=== PATIENT | female | born 1930 | race Caucasian/White ===

== ENCOUNTER 2017-02-25 08:33 | Emergency (ER) | payer MEDICARE, BC ==
[2017-02-25] MEDS ORDERED: ACETAMINOPHEN TAB 325 MG TAB PO STA (08:53)
--- NOTE | 2017-02-25 08:57 | ED ---
General Adult HPI - General Chief complaint: Extremity Injury, Lower Stated complaint: LEFT LEG PAIN, UNABLE TO BEAR WEIGHT Time Seen by Provider: 02/25/17 08:49 Source: patient, RN notes reviewed Mode of arrival: wheelchair Limitations: no limitations - History of Present Illness Initial comments: Patient is a 86 year old female who presents to the ER today with CC of left knee pain that began at approximately 4:30 am. Patient denies any injury or trauma. States it is worse with certain movement or when she tries to bare weight. Patient states that she did not take anything for the pain. She denies any other complaints. Patient denies any recent fever, chills, shortness of breath, chest pain, back pain, abdominal pain, nausea or vomiting, numbness or tingling, dysuria or hematuria, constipation or diarrhea, headaches or visual changes, or any other complaints. - Related Data Home Medications Medication Instructions Recorded Confirmed Aspirin 81 mg PO DAILY 08/02/15 02/25/17 amLODIPine BESYLATE/BENAZEPRIL 1 cap PO DAILY 08/02/15 02/25/17 [amLODIPine BESYLATE/BENAZEPRIL 5-20 mg] Allergies Allergy/AdvReac Type Severity Reaction Status Date / Time No Known Allergies Allergy Verified 02/25/17 08:42 Review of Systems ROS Statement: Those systems with pertinent positive or pertinent negative responses have been documented in the HPI. ROS Other: All systems not noted in ROS Statement are negative. Past Medical History Past Medical History: Hypertension History of Any Multi-Drug Resistant Organisms: None Reported Past Surgical History: Orthopedic Surgery Additional Past Surgical History / Comment(s): shoulder fracture with repair. Past Psychological History: No Psychological Hx Reported Smoking Status: Never smoker Past Alcohol Use History: None Reported Past Drug Use History: None Reported General Exam - General Exam Comments Initial Comments: General: The patient is awake and alert, in no distress, and does not appear acutely ill. Neck: The neck is supple, there is no tenderness or JVD. Cardiovascular: There is a regular rate and rhythm. No murmur, rub or gallop is appreciated. Respiratory: Lungs are clear to auscultation, respirations are non-labored, breath sounds are equal. No wheezes, stridor, rales, or rhonchi. Musculoskeletal: Normal appearance of left knee with no redness swelling. She shows good range of motion both flexion and extension. Tenderness on exam to the lateral exterior aspect of the left knee. No tenderness to left hip or down to the left ankle. Sensations are intact pulses equal bilaterally 2+. Strength 5/5. Neurological: A&O x 3. CN II-XII intact, There are no obvious motor or sensory deficits. Coordination appears grossly intact. Speech is normal. Skin: Skin is warm and dry and no rashes or lesions are noted. Psychiatric: Normal mood and affect. Limitations: no limitations Course Vital Signs 02/25/17 08:38 Temperature 97.8 F Pulse Rate 69 Respiratory 20 Rate Blood Pressure 136/70 O2 Sat by Pulse 96 Oximetry Medical Decision Making - Medical Decision Making Also negative for any evidence of DVT. X-rays only showing osteoarthritis. No injury or trauma. No redness or swelling. Patient doesn't to some improvement after Tylenol in the emergency room. About ice elevate and use Tylenol and follow family doctor over the next 2 days. Advised return here to the emergency room for any symptoms increase or worsen. Disposition Clinical Impression: Knee pain Disposition: HOME SELF-CARE Condition: Good Instructions: Knee Pain (ED) Additional Instructions: Please use medication as discussed. Please follow-up with family doctor in the next 2 days of symptoms have not improved. Please return to emergency room if the symptoms increase or worsen or for any other concerns. Referrals: Tomer Hugo DO [Primary Care Provider] - 1-2 days Time of Disposition: 09:59
--- NOTE | 2017-02-25 09:38 | XR ---
EXAMINATION TYPE: XR knee complete LT , 3 VIEWS DATE OF EXAM ORDERED: 02/25/2017 HISTORY: Pain. COMPARISON: None. FINDINGS: There is medial joint space loss. There is peaking of the intercondylar spines. No fractur e, dislocation or knee joint effusion is seen. There are some remodeling changes in the patellofemora l joint. IMPRESSION: OSTEOARTHRITIS.
--- NOTE | 2017-02-25 09:43 | US ---
EXAMINATION TYPE: US venous doppler duplex LE LT DATE OF EXAM: 02/25/2017 8:54 AM COMPARISON: NONE CLINICAL HISTORY: Pain. Left anterior knee pain SIDE PERFORMED: Left TECHNIQUE: The lower extremity deep venous system is examined utilizing real time linear array sonog erika with graded compression, doppler sonography and color-flow sonography. VESSELS IMAGED: External Iliac Vein (EIV) Common Femoral Vein Deep Femoral Vein Greater Saphenous Vein * Femoral Vein Popliteal Vein Proximal Calf Veins (* superficial vessels) Left Leg: Negative for DVT No popliteal fossa lesion is seen. IMPRESSION: THIS EXAMINATION IS NEGATIVE FOR DVT WITHIN THE LEFT LEG.
[2017-02-25 10:13] VITALS: BP 157/69; PULSE 63; RESP 18; TEMP 97.1
== END 2017-02-25 10:13 | disposition home or self-care (01) ==
LOC: EC 08:33
DX: M25.562 Pain in left knee (principal); M17.12 Unilateral primary osteoarthritis, left knee; I10 Essential (primary) hypertension; Z98.890 Other specified postprocedural states; Z79.82 Long term (current) use of aspirin; Z79.899 Other long term (current) drug therapy
CPT/HCPCS: 99284

== ENCOUNTER 2017-06-23 07:32 | Inpatient (IN) | payer MEDICARE, BC ==
[2017-06-23] MEDS ORDERED: SODIUM CHLORIDE 0.9% 1,000 ML IV ONE (07:53)
--- NOTE | 2017-06-23 07:59 | ED ---
General Adult HPI - General Chief complaint: Altered Mental Status Stated complaint: Confusion Time Seen by Provider: 06/23/17 07:48 Source: patient, family, EMS, RN notes reviewed Mode of arrival: EMS Limitations: altered mental status - History of Present Illness Initial comments: Patient is a pleasant 86-year-old female presenting to the emergency department with concerns for change in mental status. History is provided by family. Patient is a poor historian. Patient states she feels fine and has no complaints. Patient denies feeling confused. Family states patient was acting well last night. Patient has been altered this morning. Patient is confused and patient has been somewhat repetitive. Denies any pain. No reported injury. - Related Data Home Medications Medication Instructions Recorded Confirmed amLODIPine BESYLATE/BENAZEPRIL 1 cap PO DAILY 08/02/15 06/23/17 [amLODIPine BESYLATE/BENAZEPRIL 5-20 mg] Cholecalciferol [Vitamin D3] 1,000 unit PO DAILY 06/23/17 06/23/17 Allergies Allergy/AdvReac Type Severity Reaction Status Date / Time No Known Allergies Allergy Verified 06/23/17 08:28 Review of Systems ROS Statement: Those systems with pertinent positive or pertinent negative responses have been documented in the HPI. ROS Other: All systems not noted in ROS Statement are negative. Constitutional: Denies: fever Eyes: Denies: eye pain ENT: Denies: ear pain Respiratory: Denies: cough Cardiovascular: Denies: chest pain Endocrine: Denies: fatigue Gastrointestinal: Denies: abdominal pain Genitourinary: Denies: dysuria Musculoskeletal: Denies: back pain Skin: Denies: rash Neurological: Reports: confusion. Denies: headache, weakness Past Medical History Past Medical History: Hypertension, Osteoarthritis (OA) History of Any Multi-Drug Resistant Organisms: None Reported Past Surgical History: Orthopedic Surgery Additional Past Surgical History / Comment(s): shoulder fracture with repair. Past Psychological History: No Psychological Hx Reported Smoking Status: Never smoker Past Alcohol Use History: None Reported Past Drug Use History: None Reported General Exam Limitations: altered mental status General appearance: alert, in no apparent distress Head exam: Present: atraumatic Eye exam: Present: normal appearance, PERRL, EOMI ENT exam: Present: normal oropharynx Neck exam: Present: normal inspection. Absent: tenderness, meningismus Respiratory exam: Present: normal lung sounds bilaterally Cardiovascular Exam: Present: regular rate, normal rhythm GI/Abdominal exam: Present: soft. Absent: tenderness Extremities exam: Present: normal inspection Neurological exam: Present: alert, altered, CN II-XII intact. Absent: motor sensory deficit Expanded Neurological exam: Present: protecting the airway Patient oriented to: Absent: person, place, time Speech: Present: fluid speech Cranial nerves: EOM's Intact: Normal Motor strength exam: RUE: 5, LUE: 5, RLE: 5, LLE: 5 Eye Response: (4) open spontaneously Motor Response: (6) obeys commands Verbal Response: (4) confused conversation Psychiatric exam: Present: normal affect, normal mood Skin exam: Present: normal color Course Vital Signs 06/23/17 06/23/17 07:33 09:09 Temperature 97.3 F L Pulse Rate 85 81 Respiratory 18 16 Rate Blood Pressure 156/70 145/64 O2 Sat by Pulse 96 97 Oximetry EKG Findings - EKG Comments: EKG Findings:: Sinus rhythm at 95. First degree AV block with a AR of 214. QRS 86. QT 36. QTc 447. Left axis. Septal Q waves. No acute ST change. Medical Decision Making - Medical Decision Making Patient reevaluated and improved. Family states patient is back to normal. Patient and family updated on results and plan. Concern exists for possible TIA. Case was discussed in detail with Dr. Hugo, who will admit his patient. - Lab Data Result diagrams: 06/23/17 07:53 06/23/17 07:53 Lab Results 06/23/17 06/23/17 06/23/17 Range/Units 07:53 07:53 07:53 WBC 10.0 (3.8-10.6) k/uL RBC 5.48 H (3.80-5.40) m/uL Hgb 16.2 H (11.4-16.0) gm/dL Hct 52.3 H (34.0-46.0) % MCV 95.5 (80.0-100.0) fL MCH 29.6 (25.0-35.0) pg MCHC 31.0 (31.0-37.0) g/dL RDW 13.5 (11.5-15.5) % Plt Count 284 (150-450) k/uL Neutrophils % 81 % Lymphocytes % 13 % Monocytes % 4 % Eosinophils % 1 % Basophils % 0 % Neutrophils # 8.1 H (1.3-7.7) k/uL Lymphocytes # 1.3 (1.0-4.8) k/uL Monocytes # 0.4 (0-1.0) k/uL Eosinophils # 0.1 (0-0.7) k/uL Basophils # 0.0 (0-0.2) k/uL PT (9.0-12.0) sec INR (<1.2) APTT (22.0-30.0) sec Sodium 144 (137-145) mmol/L Potassium 4.8 (3.5-5.1) mmol/L Chloride 109 H (98-107) mmol/L Carbon Dioxide 20 L (22-30) mmol/L Anion Gap 15 mmol/L BUN 32 H (7-17) mg/dL Creatinine 1.53 H (0.52-1.04) mg/dL Est GFR (MDRD) Af Amer 39 (>60 ml/min/1.73 sqM) Est GFR (MDRD) Non-Af 32 (>60 ml/min/1.73 sqM) Glucose 145 H (74-99) mg/dL Calcium 10.5 H (8.4-10.2) mg/dL Total Bilirubin 0.6 (0.2-1.3) mg/dL AST 22 (14-36) U/L ALT 14 (9-52) U/L Alkaline Phosphatase 134 H (38-126) U/L Total Creatine Kinase 74 (30-135) U/L CK-MB (CK-2) 1.0 (0.0-2.4) ng/mL CK-MB (CK-2) Rel Index 1.4 Troponin I 0.021 (0.000-0.034) ng/mL Total Protein 7.1 (6.3-8.2) g/dL Albumin 4.2 (3.5-5.0) g/dL Urine Color Urine Appearance (Clear) Urine pH (5.0-8.0) Ur Specific [place] (1.001-1.035) Urine Protein (Negative) Urine Glucose (UA) (Negative) Urine Ketones (Negative) Urine Blood (Negative) Urine Nitrite (Negative) Urine Bilirubin (Negative) Urine Urobilinogen (<2.0) mg/dL Ur Leukocyte Esterase (Negative) Urine WBC (0-5) /hpf Ur Squamous Epith Cells (0-4) /hpf Urine Mucus (None) /hpf Urine Opiates Screen (NotDetected) Ur Oxycodone Screen (NotDetected) Urine Methadone Screen (NotDetected) Ur Propoxyphene Screen (NotDetected) Ur Barbiturates Screen (NotDetected) U Tricyclic Antidepress (NotDetected) Ur Phencyclidine Scrn (NotDetected) Ur Amphetamines Screen (NotDetected) U Methamphetamines Scrn (NotDetected) U Benzodiazepines Scrn (NotDetected) Urine Cocaine Screen (NotDetected) U Marijuana (THC) Screen (NotDetected) 06/23/17 06/23/17 Range/Units 07:53 09:02 WBC (3.8-10.6) k/uL RBC (3.80-5.40) m/uL Hgb (11.4-16.0) gm/dL Hct (34.0-46.0) % MCV (80.0-100.0) fL MCH (25.0-35.0) pg MCHC (31.0-37.0) g/dL RDW (11.5-15.5) % Plt Count (150-450) k/uL Neutrophils % % Lymphocytes % % Monocytes % % Eosinophils % % Basophils % % Neutrophils # (1.3-7.7) k/uL Lymphocytes # (1.0-4.8) k/uL Monocytes # (0-1.0) k/uL Eosinophils # (0-0.7) k/uL Basophils # (0-0.2) k/uL PT 9.5 (9.0-12.0) sec INR 1.0 (<1.2) APTT 21.2 L (22.0-30.0) sec Sodium (137-145) mmol/L Potassium (3.5-5.1) mmol/L Chloride (98-107) mmol/L Carbon Dioxide (22-30) mmol/L Anion Gap mmol/L BUN (7-17) mg/dL Creatinine (0.52-1.04) mg/dL Est GFR (MDRD) Af Amer (>60 ml/min/1.73 sqM) Est GFR (MDRD) Non-Af (>60 ml/min/1.73 sqM) Glucose (74-99) mg/dL Calcium (8.4-10.2) mg/dL Total Bilirubin (0.2-1.3) mg/dL AST (14-36) U/L ALT (9-52) U/L Alkaline Phosphatase (38-126) U/L Total Creatine Kinase (30-135) U/L CK-MB (CK-2) (0.0-2.4) ng/mL CK-MB (CK-2) Rel Index Troponin I (0.000-0.034) ng/mL Total Protein (6.3-8.2) g/dL Albumin (3.5-5.0) g/dL Urine Color Yellow Urine Appearance Clear (Clear) Urine pH 5.5 (5.0-8.0) Ur Specific [place] 1.016 (1.001-1.035) Urine Protein 1+ H (Negative) Urine Glucose (UA) Negative (Negative) Urine Ketones Negative (Negative) Urine Blood Small H (Negative) Urine Nitrite Negative (Negative) Urine Bilirubin Negative (Negative) Urine Urobilinogen <2.0 (<2.0) mg/dL Ur Leukocyte Esterase Negative (Negative) Urine WBC <1 (0-5) /hpf Ur Squamous Epith Cells <1 (0-4) /hpf Urine Mucus Rare H (None) /hpf Urine Opiates Screen Not Detected (NotDetected) Ur Oxycodone Screen Not Detected (NotDetected) Urine Methadone Screen Not Detected (NotDetected) Ur Propoxyphene Screen Not Detected (NotDetected) Ur Barbiturates Screen Not Detected (NotDetected) U Tricyclic Antidepress Not Detected (NotDetected) Ur Phencyclidine Scrn Not Detected (NotDetected) Ur Amphetamines Screen Not Detected (NotDetected) U Methamphetamines Scrn Not Detected (NotDetected) U Benzodiazepines Scrn Not Detected (NotDetected) Urine Cocaine Screen Not Detected (NotDetected) U Marijuana (THC) Screen Not Detected (NotDetected) - Radiology Data Radiology results: report reviewed (Computed tomography scan of the brain shows no acute process), image reviewed (Chest x-ray shows no acute process) Disposition Clinical Impression: Altered mental status Disposition: ADMITTED IP TO THIS HOSP Referrals: Tomer Hugo DO [Primary Care Provider] - 1-2 days Decision Time: 10:04
[2017-06-23 08:11] LABS: Basophils % (A) 0 %; Eosinophils # (A) 0.1 k/uL (0-0.7); Eosinophils % (A) 1 %; HCT 52.3 % (34.0-46.0); HGB 16.2 gm/dL (11.4-16.0); Lymphocytes # (A) 1.3 k/uL (1.0-4.8); Lymphocytes % (A) 13 %; MCH 29.6 pg (25.0-35.0); MCV 95.5 fL (80.0-100.0); Mean Platelet Volume 6.9; Monocytes # (A) 0.4 k/uL (0-1.0); Monocytes % (A) 4 %; Neutrophils # (A) 8.1 k/uL (1.3-7.7); Neutrophils % (A) 81 %; Platelet Count 284 k/uL (150-450); RBC 5.48 m/uL (3.80-5.40); RDW 13.5 % (11.5-15.5)
[2017-06-23 08:20] LABS: Albumin 4.2 g/dL (3.5-5.0); Calcium 10.5 mg/dL (8.4-10.2); Potassium 4.8 mmol/L (3.5-5.1); Prothrombin Time 9.5 sec (9.0-12.0); Total Bilirubin 0.6 mg/dL (0.2-1.3); Total Protein 7.1 g/dL (6.3-8.2)
[2017-06-23 08:35] LABS: Partial Thromboplastin Time 21.2 sec (22.0-30.0)
--- NOTE | 2017-06-23 08:36 | CT ---
EXAMINATION TYPE: CT brain wo con DATE OF EXAM: 06/23/2017 COMPARISON: 05/28/2011 HISTORY: Altered mental status, confusion CT DLP: 909.[address] of the brain was performed. The ventricles, basal cisterns and sulci overlying the cerebral convexities demonstrate mild enlargem ent. There is no evidence for intracranial hemorrhage or sulcal effacement. There is decreased attenuation about the periventricular white matter and deep white matter of both c erebral hemispheres, compatible with chronic small vessel ischemia. Differential diagnosis does inclu de demyelination. No mass effects are seen.No midline shift. Osseous calvarium is intact. If symptoms persist consider MRI. IMPRESSION: 1. Age related atrophic and chronic small vessel ischemic change without acute intracranial process s een at this time.
--- NOTE | 2017-06-23 08:48 | XR ---
EXAMINATION TYPE: XR chest 2V DATE OF EXAM: 06/23/2017 COMPARISON: 08/02/2015 INDICATION: Altered mental status TECHNIQUE: Frontal and lateral views of the chest are obtained. FINDINGS: The heart size is normal. The pulmonary vasculature is normal. The lungs are clear. IMPRESSION: 1. No acute pulmonary process.
[2017-06-23 08:54] LABS: Troponin I 0.021 ng/mL (0.000-0.034)
[2017-06-23 09:38] LABS: Appearance,Urine Clear (Clear); Bilirubin,Urine Negative (Negative); Blood,Urine Small (Negative); Color,Urine Yellow; Glucose,Urine (UA) Negative (Negative); Ketones,Urine Negative (Negative); Leukocyte Esterase,Urine Negative (Negative); Mucus,Urine Rare /hpf; Nitrite,Urine Negative (Negative); PH, Urine 5.5 (5.0-8.0); Protein,Urine 1+ (Negative); Specific Gravity,Urine 1.016 (1.001-1.035); Squamous Epithelial Cell,Urine <1 /hpf (0-4); Urobilinogen,Urine <2.0 mg/dL (<2.0); WBC,Urine <1 /hpf (0-5)
[2017-06-23 09:41] LABS: Amphetamine Screen,Urine Not Detected (NotDetected); Barbiturate Screen,Urine Not Detected (NotDetected); Benzodiazepines Screen,Urine Not Detected (NotDetected); Cocaine Screen,Urine Not Detected (NotDetected); Methadone Screen, Urine Not Detected (NotDetected); Opiate Screen,Urine Not Detected (NotDetected); Oxycodone Screen, Urine Not Detected (NotDetected); Phencyclidine Screen,Urine Not Detected (NotDetected); Tricyclic Antidepressant,Urine Not Detected (NotDetected); Urn Cannabinoid Scrn Not Detected (NotDetected)
[2017-06-23] MEDS ORDERED: NALOXONE 0.4 MG/ML 1 ML VIAL IV PRN (10:04)
--- NOTE | 2017-06-23 12:04 | US ---
EXAMINATION TYPE: US carotid duplex BILAT DATE OF EXAM: 06/23/2017 COMPARISON: NONE CLINICAL HISTORY: ams. EXAM MEASUREMENTS: RIGHT: Peak Systolic Velocity (PSV) cm/sec ----- Right CCA: 53.6 ----- Right ICA: 53.0 ----- Right ECA: 74.8 ICA/CCA ratio: 1.0 RIGHT: End Diastole cm/sec ----- Right CCA: 11.5 ----- Right ICA: 15.7 ----- Right ECA: 0.6 LEFT: Peak Systolic Velocity (PSV) cm/sec ----- Left CCA: 59.8 ----- Left ICA: 51.3 ----- Left ECA: 77.3 ICA/CCA ratio: 0.9 LEFT: End Diastole cm/sec ----- Left CCA: 11.9 ----- Left ICA: 7.9 ----- Left ECA: 0.0 VERTEBRALS (direction of flow): Right Vertebral: Antegrade Left Vertebral: Antegrade Rhythm: Normal Mild atherosclerotic changes, no significant velocity elevations. IMPRESSION: 1. No significant flow-limiting stenosis. Criteria for Assigning % of Stenosis / Diameter reduction (Estimation based on the indirect measurements of the internal carotid artery velocities (ICA PSV). 1. Normal (no stenosis)=ICA PSV < 125 cm/s: ratio < 2.0: ICA EDV<40 cm/s. 2. Less than 50% stenosis=ICA PSV < 125 cm/s: ratio < 2.0: ICA EDV<40 cm/s. 3. 50 to 69% stenosis=ICA PSV of 125 to 230 cm/s: ration 2.0 ? 4.0: ICA EDV 40-100 cm/s. 4. Greater than 70% stenosis to near occlusion= ICA PSV > 230 cm/s: ratio > 4.0: ICA EDV > 100 cm/s. 5. Near occlusion= ICA PSV velocities may be low or undetectable: variable ratio and ICA EDV. 6. Total occlusion=unable to detect flow.
--- NOTE | 2017-06-23 12:39 | ECHOF ---
Referral Reason:ams MEASUREMENTS -------- HEIGHT: 157.5 cm WEIGHT: 68.0 kg BP: RVIDd: 3.3 cm (< 3.3) IVSd: 1.4 cm (0.6 - 1.1) LVIDd: 3.2 cm (3.9 - 5.3) LVPWd: 1.1 cm (0.6 - 1.1) IVSs: 1.4 cm LVIDs: 2.4 cm LVPWs: 1.1 cm Ao Diam: 2.5 cm (2.0 - 3.7) AV Cusp: 1.6 cm (1.5 - 2.6) LA Diam: 4.5 cm (2.7 - 3.8) MV EXCURSION: 11.714 mm (> 18.000) MV EF SLOPE: 60 mm/s (70 - 150) EPSS: 0.4 cm MV E Reilly: 0.40 m/s MV DecT: 355 ms MV A Reilly: 0.87 m/s MV E/A Ratio: 0.46 RAP: 5.00 mmHg RVSP: 32.85 mmHg FINDINGS -------- Sinus rhythm. This was a technically adequate study. The left ventricular size is normal. There is mild concentric left ventricular hypertrophy. Overa ll left ventricular systolic function is normal with, an EF between 55 - 60 %. The right ventricle is normal in size. The left atrium is moderately dilated. The right atrial size is normal. There is mild aortic valve sclerosis. There is no evidence of aortic regurgitation. Mild mitral annular calcification present. Mild mitral regurgitation is present. Mild tricuspid regurgitation present. There is no evidence of pulmonary hypertension. The right v entricular systolic pressure, as measured by Doppler, is 32.85mmHg. The pulmonic valve was not well visualized. There is no pulmonic regurgitation present. The aortic root size is normal. There is no pericardial effusion. CONCLUSIONS -------- 1. Sinus rhythm. 2. The left ventricular size is normal. 3. There is mild concentric left ventricular hypertrophy. 4. Overall left ventricular systolic function is normal with, an EF between 55 - 60 %. 5. The left atrium is moderately dilated. 6. There is mild aortic valve sclerosis. 7. Mild mitral regurgitation is present. 8. Mild tricuspid regurgitation present. 9. There is no evidence of pulmonary hypertension. 10. There is no pulmonic regurgitation present. 11. There is no pericardial effusion. [employer] HAND: Saskia Huff RDCS
[2017-06-23] MEDS: LISINOPRIL 20 MG TAB PO SCH (14:14)
[2017-06-23] MEDS: amLODIPine 5 MG TAB PO SCH (14:14)
[2017-06-23] MEDS: CHOLECALCIFEROL 1,000 UNIT TAB PO SCH (14:14)
[2017-06-23] MEDS: ASPIRIN 81 MG PO SCH (14:14)
[2017-06-23] MEDS: SODIUM CHLORIDE 0.9% 1,000 ML IV SCH (17:11)
--- NOTE | 2017-06-23 18:43 | P.CNNES ---
History of Present Illness Consult date: 06/23/17 History of Present Illness: Patient is an 86-year-old female who was brought to the hospital with altered mental status. He is obtained from the patient and the patient's family including her daughter and son-in-law. Apparently the patient woke up at 3 AM and had some jerking movements in the and her heard this. He tried to talk to her but she could not hear them. She also had some irregular respirations. She he called his daughter who did come to the home at 6:30 and was unable to arouse her mother. The patient was sleeping heavily and only snored when they tried to pincher and wake her up. EMS was called and she was brought to the emergency room. The patient had no recollection of the ride to the emergency room. A few hours after arrival to the hospital she was back to her baseline. Apparently after waking up in the morning she was very confused disoriented could not recognize her or her children or family. So there was incontinence of There is no past history of seizure. There is no history of head injury or intracranial infection in the past. Her family at a carotid ultrasound in the emergency room which showed no flow-limiting stenosis. He had an echocardiogram which showed the left atrium to be moderately dilated and left ventricle normal size reports her speech was not understandable in the morning. 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 History of Any Multi-Drug Resistant Organisms: None Reported Past Surgical History: Orthopedic Surgery, Tonsillectomy Additional Past Surgical History / Comment(s): L shoulder fracture with repair, bilateral cataract removals with lens implants. Past Anesthesia/Blood Transfusion Reactions: No Reported Reaction Smoking Status: Never smoker - Past Family History Father Additional Family Medical History / Comment(s): Father committed suicde. Mother Family Medical History: Diabetes Mellitus Medications and Allergies Home Medications Medication Instructions Recorded Confirmed Type amLODIPine BESYLATE/BENAZEPRIL 1 cap PO DAILY 08/02/15 06/23/17 History [amLODIPine BESYLATE/BENAZEPRIL 5-20 mg] Cholecalciferol [Vitamin D3] 1,000 unit PO DAILY 06/23/17 06/23/17 History Allergies Allergy/AdvReac Type Severity Reaction Status Date / Time No Known Allergies Allergy Verified 06/23/17 08:28 Physical Examination - Vital Signs Vital Signs: Vital Signs Temp Pulse Resp BP Pulse Ox 06/23/17 16:43 99.2 F 68 16 113/54 91 L 06/23/17 14:15 78 16 151/63 94 L 06/23/17 10:58 71 16 160/71 95 06/23/17 09:09 81 16 145/64 97 06/23/17 07:33 97.3 F L 85 18 156/70 96 Intake and Output 06/23/17 06/23/17 06/23/17 06:59 14:59 22:59 Intake Total 0 Output Total 0 Balance 0 Intake: Intake, IV Titration 0 Amount Sodium Chloride 0.9% 1, 0 000 ml @ 20 mls/hr IV . Q24H [facility] Rx#:[id number] Output: Urine 0 Other: Weight 68.039 kg Patient Weight 06/24/17 06:59 Weight 68.039 kg - Constitutional General appearance: average body habitus - EENT EENT: PERRL, hearing intact, vision intact - Neurologic Ental status she was awake she was oriented to person she could not give the year she had difficulty naming the city she knew she was in the hospital and there is no a aphasia or dysarthria Results - Laboratory Findings CBC and BMP: 06/23/17 07:53 06/23/17 07:53 Abnormal Lab Findings: Abnormal Labs 06/23/17 06/23/17 06/23/17 07:53 07:53 07:53 RBC 5.48 H Hgb 16.2 H Hct 52.3 H Neutrophils # 8.1 H APTT 21.2 L Chloride 109 H Carbon Dioxide 20 L BUN 32 H Creatinine 1.53 H Glucose 145 H Calcium 10.5 H Alkaline Phosphatase 134 H Urine Protein Urine Blood Urine Mucus 06/23/17 09:02 RBC Hgb Hct Neutrophils # APTT Chloride Carbon Dioxide BUN Creatinine Glucose Calcium Alkaline Phosphatase Urine Protein 1+ H Urine Blood Small H Urine Mucus Rare H Assessment and Plan (1) Altered mental status Current Visit: Yes Status: Acute Code(s): R41.82 - ALTERED MENTAL STATUS, UNSPECIFIED Plan: The patient is a 86-year-old woman who had an episode at 3 AM of shaking in the bed while sleeping and loss of bladder control. Afterwards she slept heavily and woke up very disoriented and confused and could not be easily awakened in the morning by her family. EMS was called and patient was brought to the hospital. Her confusion seemed to resolve after several hours. Patient's episode at 3 AM could've been a generalized seizure and she quit may have been in a postictal state afterward. Recommend further evaluation with EEG and MRI scan of the brain. Advised patient that she should not be driving until spell free for 6 months
[2017-06-23 18:53] VITALS: RESP 18
[2017-06-24] MEDS: PANTOPRAZOLE 40 MG TABLET PO SCH (06:33)
[2017-06-24 07:01] LABS: Basophils % (A) 0 %; Eosinophils # (A) 0.1 k/uL (0-0.7); Eosinophils % (A) 1 %; HCT 43.3 % (34.0-46.0); HGB 13.4 gm/dL (11.4-16.0); Lymphocytes % (A) 20 %; MCH 29.9 pg (25.0-35.0); MCV 96.6 fL (80.0-100.0); Monocytes # (A) 0.8 k/uL (0-1.0); Monocytes % (A) 8 %; Neutrophils # (A) 6.7 k/uL (1.3-7.7); Neutrophils % (A) 69 %; Platelet Count 231 k/uL (150-450); RBC 4.49 m/uL (3.80-5.40); RDW 13.5 % (11.5-15.5); WBC 9.7 k/uL (3.8-10.6)
[2017-06-24 07:15] LABS: Albumin 3.3 g/dL (3.5-5.0); Calcium 9.6 mg/dL (8.4-10.2); Potassium 4.2 mmol/L (3.5-5.1); Total Bilirubin 0.6 mg/dL (0.2-1.3); Total Protein 5.7 g/dL (6.3-8.2)
[2017-06-24] MEDS: ASPIRIN 81 MG PO SCH (09:45)
[2017-06-24] MEDS: CHOLECALCIFEROL 1,000 UNIT TAB PO SCH (09:45)
[2017-06-24] MEDS: LISINOPRIL 20 MG TAB PO SCH (09:45)
[2017-06-24] MEDS: amLODIPine 5 MG TAB PO SCH (09:45)
--- NOTE | 2017-06-24 10:44 | EEG ---
ELECTROENCEPHALOGRAM REPORT DATE OF EE06/24/2017. ELECTROENCEPHALOGRAPHIC EXAMINATION REPORT: INDICATION FOR EXAMINATION: This patient is an 86-year-old female being evaluated for altered mental status and possible seizure. AGE: 86. EEG FINDINGS: A routine 21 channel awake digital EEG recording was accomplished utilizing the 10-20 international system with bipolar and referential montages. The background activity in the most alert resting state consists of a low to medium amplitude, fairly well- developed and well-sustained 8 Hz activity over the posterior head regions. This posterior rhythm attenuates to eye opening. There is a small amount of low amplitude 18-20 Hz beta activity seen maximally over the anterior head regions. Muscle and movement artifact was observed on a few occasions during the tracing. Hyperventilation was not performed. Photic stimulation at flash frequencies of 2-30 Hz produced a good symmetrical occipital driving response. No epileptiform discharges were seen. IMPRESSION: This EEG is within normal limits for the patient's age. The EEG failed to reveal any focal, lateralized, or epileptiform abnormalities. Clinical correlation is recommended. MMQUINTONL / IJN: [id number] /
[2017-06-24] MEDS: SODIUM CHLORIDE 0.9% 1,000 ML IV SCH (11:30)
--- NOTE | 2017-06-24 13:22 | MR ---
EXAMINATION TYPE: MR brain wo con DATE OF EXAM: 06/24/2017 1:03 PM. COMPARISON: Previous study dated 08/13/2014. HISTORY: Change in mental status Technique: Multiplanar, multiecho imaging of the brain was obtained without intravenous contrast. FINDINGS: Midline structures are unremarkable. There is a normal craniocervical junction. Echoplanar diffusion imaging shows no areas of restricted diffusion. There are normal vascular flow voids. The orbits appear normal. There is no evidence of a CP angle mass lesion. There is both punctate and confluent periventricular white matter change in the deep white matter tra cts of the cerebral hemispheres. This has progressed slightly from previous. This is likely on the ba sis of small vessel disease and chronic white matter ischemic change. There is no acute focal lesion, mass effect or midline shift identified. I do not see evidence of intracranial blood. IMPRESSION: 1. NO ACUTE INTRACRANIAL ABNORMALITY. 2. ATROPHIC CHANGE. 3. BOTH PUNCTATE AND CONFLUENT PERIVENTRICULAR WHITE MATTER CHANGE, MOST COMPATIBLE WITH A COMBINATIO N OF CHRONIC ISCHEMIC CHANGE AND SMALL VESSEL ISCHEMIC CHANGE.
--- NOTE | 2017-06-24 17:46 | P.PN ---
Subjective Progress Note Date: 06/24/17 Patient is an 86-year-old woman admitted to the hospital with episode of altered mental status.. She is feeling well today. She has no specific complaints. Family is at bedside. They report that she has a history of night terrors and nightmares and feel that her awakening at 3 AM the night of admission was likely a nightmare a night terror. She had an EEG which was normal. She had an MRI of the brain which showed small vessel ischemic changes. There is no clear-cut evidence of a seizure and family would prefer not to start any medication at this time. They feel that the episode was typical of her nightmare and night terrors. Device the family patient should not be driving until spell free for 6 months. Objective - Vital Signs Vital signs: Vital Signs Temp 97.5 F L 06/24/17 16:00 Pulse 71 06/24/17 16:00 Resp 18 06/24/17 16:00 BP 116/63 06/24/17 16:00 Pulse Ox 98 06/24/17 16:00 Intake & Output 06/23/17 06/24/17 06/24/17 18:59 06:59 18:59 Intake Total 0 360 Output Total 0 0 Balance 0 0 360 Weight 68.039 kg 68.4 kg Intake: Intake, IV Titration 0 Amount Sodium Chloride 0.9% 1, 0 000 ml @ 20 mls/hr IV . Q24H [facility] Rx#:[id number] Oral 360 Output: Urine 0 0 Other: Voiding Method Incontinent Incontinent Incontinent # Voids 0 1 - Constitutional General appearance: Present: cooperative - EENT Eyes: Present: PERRLA ENT: Present: hard of hearing, hearing grossly normal - Neurologic Neurologic: Present: CNII-XII intact - Musculoskeletal Musculoskeletal: Present: strength equal bilaterally - Psychiatric Psychiatric: Present: A&O x's 3 - Labs CBC & Chem 7: 06/24/17 05:48 06/24/17 05:48 Labs: Abnormal Lab Results - Last 24 Hours (Table) 06/24/17 Range/Units 05:48 Chloride 111 H (98-107) mmol/L BUN 28 H (7-17) mg/dL Creatinine 1.40 H (0.52-1.04) mg/dL Total Protein 5.7 L (6.3-8.2) g/dL Albumin 3.3 L (3.5-5.0) g/dL Assessment and Plan (1) Altered mental status Current Visit: Yes Status: Acute Code(s): R41.82 - ALTERED MENTAL STATUS, UNSPECIFIED Plan: The patient is an 86-year-old woman with history of night terrors and night pedroza. She was admitted to the hospital with altered mental status. There is no clear-cut evidence of seizure. She had an EEG which was normal. Her MRI showed small vessel disease. She has been on alert oriented 3 since admission. She is doing well and according to family back to baseline. They feel that the episode was related to her night terrors. Family at her bedside include her daughter and son-in-law. Advised them that she should not be driving until spell free for 6 months. If she should have any further episodes of altered mental status we will do further evaluation and testing.
--- NOTE | 2017-06-24 18:11 | HP ---
HISTORY AND PHYSICAL DATE OF SERVICE: 06/24/2017 I am covering for Dr. Tomer Hugo. CHIEF COMPLAINT: Confusion. HISTORY OF PRESENT ILLNESS: This 86-year-old woman with a past medical history of hypertension, history of DJD, history of left shoulder fracture being followed by Dr. Tomer Hugo in the outpatient setting was apparently living with at home. Yesterday the patient had episodes of confusion which lasted for several minutes. Patient did not remember what happened during that time. Patient taken to [facility] and was admitted for further evaluation and treatment. The patient was found to have minimally elevated creatinine. Otherwise the MRI showed no acute stroke. Diffuse ischemia is noted. The EEG was done which was read by Neurology and showed no abnormal patterns. The neurovascular workup is underway, the possible seizures was considered by neurologist. No chest pain. No palpitations. No fever. PAST MEDICAL HISTORY: History of eye disorder, hypertension, DJD. MEDICATIONS: Prior to admission include: 1. Amlodipine/benazepril 1 p.o. daily. 2. Vitamin D 3000 daily. ALLERGIES: None. FAMILY HISTORY: History of diabetes mellitus. Father committed suicide. SOCIAL HISTORY: No history of smoking. No history of alcohol intake. REVIEW OF SYSTEMS: ENT: Diminished vision and diminished hearing. Cardio system: No angina. RESPIRATORY: As mentioned earlier. GI no nausea or vomiting. : No dysuria. NERVOUS SYSTEM: As mentioned earlier. Allergy/Immunology: No asthma or hayfever. Musculoskeletal as mentioned earlier. HEMATOLOGY/ONCOLOGY: No history of anemia. Endocrine no history of diabetes, hypothyroidism. Constitutional: As mentioned earlier. Dermatology: Negative. Rheumatology: Negative. Psychiatric: As mentioned earlier. PHYSICAL EXAMINATION: Alert and oriented times two. Pulse 71. Blood pressure 116/60, respiration 18, temperature 97.4, pulse ox 98% room air. HEENT: Conjunctivae normal. Oral mucosa moist. Neck is no jugular venous distention. No carotid bruit. No lymph node enlargement. Cardiovascular S1, S2 muffled. No s3, no S4. Respiratory: Breath sounds diminished in the bases. A few scattered rhonchi. No crackles. ABDOMEN: Soft, nontender. No mass palpable. Legs no edema. No swelling. NERVOUS SYSTEM: Higher functions as mentioned. Moves all 4 limbs. No focal motor or sensory deficits. Lymphatics: No lymph nodes palpable in the neck, axillae or groin. Skin no ulcer, rash, bleeding. LABS: At this time shows WBC 9.7, hemoglobin 13.2, sodium 140, potassium 4.2, creatinine is 1.40. ASSESSMENT: 1. Change in mental status, confusion, possible acute transient ischemic attack versus acute seizure disorder. 2. Increased creatinine with chronic kidney disease. 3. History of hypertension. 4. History of degenerative joint disease. 5. History of tonsillectomy. 6. FULL CODE. RECOMMENDATIONS AND DISCUSSION: This 86-year-old woman presented with multiple medical issues, at this time I recommend to continue current medications, continue symptomatic treatment. I recommend Ecotrin and neurovascular workup. I would also recommend a lipid panel. Otherwise I would also recommend repeat labs in the morning. Neurology evaluation. Antiplatelet agents. Guarded prognosis. EEG and MRI. Guarded prognosis because of multiple complex medical issues. Further recommendations to follow. Discussed with family who understands and agrees and the patient will follow up with Dr. Hugo in the outpatient setting. VIANCA / KWAMEN: [id number] /
[2017-06-25] MEDS: PANTOPRAZOLE 40 MG TABLET PO SCH (06:25)
[2017-06-25 07:03] LABS: Basophils % (A) 0 %; Eosinophils # (A) 0.2 k/uL (0-0.7); Eosinophils % (A) 2 %; HCT 44.5 % (34.0-46.0); HGB 13.6 gm/dL (11.4-16.0); Lymphocytes # (A) 1.5 k/uL (1.0-4.8); Lymphocytes % (A) 21 %; MCH 29.1 pg (25.0-35.0); MCHC 30.6 g/dL (31.0-37.0); MCV 95.1 fL (80.0-100.0); Monocytes # (A) 0.6 k/uL (0-1.0); Monocytes % (A) 8 %; Neutrophils % (A) 68 %; Platelet Count 211 k/uL (150-450); RBC 4.68 m/uL (3.80-5.40); RDW 13.5 % (11.5-15.5); WBC 7.4 k/uL (3.8-10.6)
[2017-06-25 07:21] LABS: Albumin 3.4 g/dL (3.5-5.0); Calcium 9.6 mg/dL (8.4-10.2); Potassium 4.6 mmol/L (3.5-5.1); Total Bilirubin 0.5 mg/dL (0.2-1.3); Total Protein 5.9 g/dL (6.3-8.2)
[2017-06-25] MEDS: amLODIPine 5 MG TAB PO SCH (07:57)
[2017-06-25] MEDS: CHOLECALCIFEROL 1,000 UNIT TAB PO SCH (07:57)
[2017-06-25] MEDS: ASPIRIN 81 MG PO SCH (07:57)
[2017-06-25] MEDS: LISINOPRIL 20 MG TAB PO SCH (07:57)
[2017-06-25] MEDS: SODIUM CHLORIDE 0.9% 1,000 ML IV SCH (11:49)
[2017-06-25 12:35] VITALS: BP 119/64; PULSE 79; TEMP 97.3
--- NOTE | 2017-06-25 22:24 | DS ---
DISCHARGE SUMMARY DATE OF SERVICE: 06/25/2017 I am covering for Dr. Hugo. FINAL DIAGNOSES: 1. Change in mental status, confusion, possible acute transient ischemic attack. 2. Increased creatinine with chronic kidney disease. 3. History of hypertension. 4. History of degenerative joint disease. 5. History of tonsillectomy. 6. FULL CODE. DISCHARGE DISPOSITION: Patient is being discharged in stable condition with guarded prognosis. HISTORY OF PRESENT ILLNESS: This 87-year-old woman with a past medical history of multiple medical problems was admitted with change in mental status and possible transient ischemic attack. Neurology saw the patient. EEG was normal. MR is also normal. I recommended no driving until spell free for [address] Enedelia Ruiz because of concerns of seizures. Otherwise, patient improved significantly. PHYSICAL EXAMINATION: On exam, vitals are stable. Cardio system: S1 S2. Abdomen soft. Nervous system: No focal deficits. DISCHARGE ADVICE AND MEDICATIONS: 1. Diet is cardiac diet. 2. Activity limited until Followup. 3. Follow up with Dr. Tomer Hugo in 1-2 days. 4. Follow with neurology as advised. MEDICATIONS ARE: 1. Amlodipine. 2. Benazepril 1 tab p.o. daily. 3. Vitamin D3 1000 mg p.o. daily. 4. Ecotrin 81 mg p.o. daily. Please send a copy to Dr. Tomer Hugo, Neurology, Dr. Fide Ruiz. Once again, the patient is being discharged in stable condition with guarded prognosis. MMODL / IJN: [id number] /
--- NOTE | 2017-06-29 09:47 | CDI ---
Last Revision, April 2017 Documentation Clarification Form Date: 06/29/2017 9:37:00 AM From: Trisha Valerio Phone: If you have a question regarding this query, please call Flora Marshall Glove Cuffer at [phone] between 8am and 5pm Admit Date: 06/23/2017 10:04:00 AM Patient Name: Kelly Grossman Visit Number: [id number] Discharge Date: ATTENTION: The Clinical Documentation Specialists (CDI) and [facility] Coding Staff appreciate your assistance in clarifying documentation. Please respond to the clarification below the line at the bottom and electronically sign. The CDI & [facility] Coding staff will review the response and follow-up if needed. Please note: Queries are made part of the Legal Health Record. If you have any questions, please contact the author of this message via ITS. Dr. Severino Underwood History/Risk Factors: Patient has a history of hypertension. Current BUN/CR/GFR: 32/1.53/32 on admit and 29/1.48/33 on day of discharge Patients Baseline: BUN/CR/GFR: Not documented Patients medications include: Amlodipine, Benazepil, Vitamin D3 and Ecotrin IVF: Sodium Chloride IV @75 mls/hr In order to capture the severity of condition, please clarify if the condition signifies: CKD Stage 1 (GFR > 90) CKD Stage 2 (GFR 60-89) CKD Stage 3 (GFR 30-59) CKD Stage 4 (GFR 15-29) CKD Stage 5 (GFR <15) ESRD Other, please specify Unable to determine Please continue to document in your progress notes and discharge summary in order to capture severity of illness and risk of mortality. Include clinical findings that support your diagnosis. CKD Stage 3 (GFR 30-59) MTDD
== END 2017-06-25 14:24 | disposition home or self-care (01) | DRG 69 ==
LOC: EC 07:32 → 6SEL 10:04
PROVIDERS: ADMIT Family Medicine; ATTEND Family Medicine
DX: G45.9 Transient cerebral ischemic attack, unspecified (principal); N18.3 Chronic kidney disease, stage 3 (moderate); F51.4 Sleep terrors [night terrors]; F51.5 Nightmare disorder; I12.9 Hypertensive chronic kidney disease with stage 1 through stage 4 chronic kidney disease, or unspecified chronic kidney disease; R32 Unspecified urinary incontinence; H53.2 Diplopia; M19.90 Unspecified osteoarthritis, unspecified site; R26.81 Unsteadiness on feet; H91.90 Unspecified hearing loss, unspecified ear; Z79.899 Other long term (current) drug therapy
CPT/HCPCS: 36415; 70450; 70551; 71046; 80053; 80061; 80306; 81001; 82550; 82553; 84484; 85025; 85610; 85730; 93005; 93306; 93880; 95816; 96360; 96361; 99285